=== PATIENT | male | born 1990 | race Asian ===

== ENCOUNTER 2017-04-24 08:37 | Inpatient (IN) | payer MEDICAID ==
[~2017-04-24] VITALS: Ht 172.7 cm; Wt 58.1 kg
[~2017-04-24 08:37] MED LIST: BENZ1TAB10 PO; RISP3 PO
[2017-04-24] MEDS ORDERED: DOXE10 PO (08:46)
[2017-04-24 09:35] LABS: BASOPHILS # (AUTO) 0.07 K/uL (0.00-0.20); BASOPHILS % (AUTO) 0.9 % (0.0-2.0); EOSINOPHILS # (AUTO) 0.09 K/uL (0.00-0.70); EOSINOPHILS % (AUTO) 1.12 % (1.0-6.0); HEMATOCRIT 42.3 % (41-53); HEMOGLOBIN 14.1 g/dL (13.5-17.5); LYMPHOCYTES # (AUTO) 1.9 K/uL (1.0-4.8); LYMPHOCYTES % (AUTO) 22.3 % (22.0-44.0); MEAN CORPUSCULAR HEMOGLOBIN 29.1 pg (26.0-34.0); MEAN CORPUSCULAR HGB CONC 33.3 G/dL (31.0-37.0); MEAN CORPUSCULAR VOLUME 88 fL (80-100); MONOCYTES # (AUTO) 0.7 K/uL (0.1-1.0); MONOCYTES % (AUTO) 8.9 % (2.0-9.0); NEUTROPHILS # (AUTO) 5.6 K/uL (1.8-7.7); NEUTROPHILS % (AUTO) 66.9 % (40.0-70.0); PLATELET COUNT (AUTO) 245 K/uL (150-450); RED BLOOD CELL COUNT(AUTO) 4.84 MIL/uL (4.50-5.90); RED CELL DISTRIBUTION WIDTH 13.2 % (11.5-14.5)
[2017-04-24 09:48] LABS: ANION GAP 7 mmol/L (8-16); CARBON DIOXIDE 29 mmol/L (22-29); CHLORIDE 101 mmol/L (98-107); CREATININE 1.07 mg/dL (0.60-1.30); GLOMERULAR FILTR. RATE CALC > 60 mL/min (>60); GLUCOSE,RANDOM 91 mg/dL (70-110); POTASSIUM 3.7 mmol/L (3.5-5.1); SODIUM SERUM 137 mmol/L (136-145); UREA NITROGEN, BLOOD 7 mg/dL (7-18)
[2017-04-24 09:53] LABS: ALANINE AMINOTRANSFERASE 17 U/L (12-78); ALBUMIN 4.2 g/dL (3.4-5.0); ALKALINE PHOSPHATASE 105 U/L (46-116); ASPARTATE AMINOTRANSFERASE 19 U/L (15-37); BILIRUBIN,TOTAL 0.5 mg/dL (0.1-1.0); TOTAL PROTEIN, SERUM 7.8 g/dL (6.4-8.2)
[2017-04-24] MEDS ORDERED: BENZ0.5T6 PO (11:55)
[2017-04-24] MEDS ORDERED: RISP1 PO (11:55)
[2017-04-24] MEDS ORDERED: LORazepam 2 MG TABLET PO ONE (12:00)
[2017-04-24] MEDS ORDERED: ZOLPIDEM TARTRATE 10 MG TABLET PO PRN (12:45)
[2017-04-24] MEDS ORDERED: INFLUENZA VIRUS VACCINE QVS 2017-18 (3YR+)/PF 60 MCG/0.5 ML SYRINGE IM ONE (14:45)
[2017-04-24 16:00] VITALS: BP 127/68
[2017-04-24] MEDS: LORazepam 2 MG TABLET PO PRN (16:03)
[2017-04-24] MEDS: HALOPERIDOL 5 MG TABLET PO PRN (17:21)
[2017-04-24] MEDS ORDERED: HALOPERIDOL LACTATE 5 MG/ML VIAL ONE (18:51)
[2017-04-24] MEDS ORDERED: DiphenhydrAMINE HCL 50 MG/ML VIAL ONE (18:51)
[2017-04-24] MEDS ORDERED: LORazepam 2 MG/ML VIAL ONE (18:51)
[2017-04-24] MEDS ORDERED: LORazepam 2 MG/ML VIAL IM ONE (19:00)
[2017-04-24] MEDS ORDERED: HALOPERIDOL LACTATE 5 MG/ML VIAL IM ONE (19:00)
[2017-04-24] MEDS ORDERED: DiphenhydrAMINE HCL 50 MG/ML VIAL IM ONE (19:00)
[2017-04-25 06:33] VITALS: BP 100/69
[2017-04-25 08:10] VITALS: BP 139/69
[2017-04-25 08:15] LABS: CHOL/HDL RATIO 2.4 (4.2-7.3); FREE T4 (FREE THYROXINE) 1.2 ng/dL (0.76-1.46)
[2017-04-25] MEDS: BENZTROPINE MESYLATE 1 MG TABLET PO SCH ×2 (09:01→16:08)
[2017-04-25] MEDS: RisperiDONE 3 MG TABLET PO SCH ×2 (09:01→16:08)
[2017-04-25] MEDS: LORazepam 2 MG TABLET PO PRN ×3 (09:01→20:23)
[2017-04-25] MEDS: HALOPERIDOL 5 MG TABLET PO PRN ×2 (09:01→14:48)
[2017-04-25 16:00] VITALS: BP 115/70
[2017-04-26 01:04] VITALS: BP 106/82
[2017-04-26 08:15] VITALS: BP 110/62
[2017-04-26] MEDS: BENZTROPINE MESYLATE 1 MG TABLET PO SCH ×2 (09:13→16:39)
[2017-04-26] MEDS: RisperiDONE 3 MG TABLET PO SCH ×2 (09:13→16:39)
[2017-04-26] MEDS: HALOPERIDOL 5 MG TABLET PO PRN (09:17)
[2017-04-26] MEDS: LORazepam 2 MG TABLET PO PRN ×2 (09:17→14:20)
[2017-04-26 16:00] VITALS: BP 112/78
[2017-04-26] MEDS ORDERED: IBUPROFEN 600 MG TABLET PO PRN (22:15)
[2017-04-27 02:10] VITALS: BP 116/69
[2017-04-27] MEDS: HALOPERIDOL 5 MG TABLET PO PRN ×2 (02:17→16:18)
[2017-04-27] MEDS: LORazepam 2 MG TABLET PO PRN ×3 (02:17→16:19)
[2017-04-27] MEDS: BENZTROPINE MESYLATE 1 MG TABLET PO SCH ×2 (08:15→16:19)
[2017-04-27] MEDS: RisperiDONE 3 MG TABLET PO SCH ×2 (08:15→16:18)
[2017-04-27 08:36] VITALS: BP 96/67
[2017-04-27 16:00] VITALS: BP 123/73
[2017-04-28 02:18] VITALS: BP 119/80
[2017-04-28 08:29] VITALS: BP 117/53
[2017-04-28] MEDS: RisperiDONE 3 MG TABLET PO SCH (08:33)
[2017-04-28] MEDS: LORazepam 2 MG TABLET PO PRN (08:33)
[2017-04-28] MEDS: BENZTROPINE MESYLATE 1 MG TABLET PO SCH (08:33)
[2017-04-28] MEDS ORDERED: ACETAMINOPHEN 325 MG TABLET PO PRN (09:45)
[2017-04-28] MEDS ORDERED: BENZ1TAB10 PO (15:47)
[2017-04-28] MEDS ORDERED: RISP3 PO (15:47)
== END 2017-04-28 16:15 | disposition home or self-care (01) | DRG 750 ==
LOC: EEVIPCON 08:38 → EMS 08:38 → B3A 13:15
PROVIDERS: ADMIT Psychiatry & Neurology Psychiatry; ATTEND Psychiatry & Neurology Psychiatry
DX: F20.0 Paranoid schizophrenia (principal); R45.850 Homicidal ideations; F41.9 Anxiety disorder, unspecified; F12.90 Cannabis use, unspecified, uncomplicated; Z28.21 Immunization not carried out because of patient refusal
CPT/HCPCS: 80074; 84436; 84439; 90471; 99285; G0480; J1200; J1630; J2060

== ENCOUNTER 2019-03-03 16:34 | Inpatient (IN) | payer MEDICAID ==
[~2019-03-03] VITALS: Ht 172.7 cm; Wt 60.0 kg
[2019-03-03] MEDS ORDERED: RISP1 PO (16:46)
[2019-03-03 18:00] VITALS: BP 123/85
[2019-03-03 18:02] VITALS: BP 123/85
[2019-03-03] MEDS: HALOPERIDOL 5 MG TABLET PO PRN (18:21)
[2019-03-03] MEDS: LORazepam 2 MG TABLET PO PRN (18:21)
[2019-03-03] MEDS: ZOLPIDEM TARTRATE 10 MG TABLET PO PRN (20:59)
[2019-03-04 06:20] VITALS: BP 114/78
[2019-03-04] MEDS: LORazepam 2 MG TABLET PO PRN ×4 (07:02→16:25)
[2019-03-04 08:26] LABS: BASOPHILS % (AUTO) 0.8 % (0.0-2.0); EOSINOPHILS % (AUTO) 1.9 % (1.0-6.0); HEMATOCRIT 46.2 % (41-53); HEMOGLOBIN 15.1 g/dL (13.5-17.5); LYMPHOCYTES # (AUTO) 1.6 K/uL (1.0-4.8); LYMPHOCYTES % (AUTO) 19.4 % (22.0-44.0); MEAN CORPUSCULAR HEMOGLOBIN 28.8 pg (26.0-34.0); MEAN CORPUSCULAR HGB CONC 32.7 G/dL (31.0-37.0); MEAN CORPUSCULAR VOLUME 88 fL (80-100); MONOCYTES # (AUTO) 0.4 K/uL (0.1-1.0); MONOCYTES % (AUTO) 4.2 % (2.0-9.0); NEUTROPHILS # (AUTO) 6.2 K/uL (1.8-7.7); NEUTROPHILS % (AUTO) 73.7 % (40.0-70.0); PLATELET COUNT (AUTO) 294 K/uL (150-450); RED BLOOD CELL COUNT(AUTO) 5.25 MIL/uL (4.50-5.90); RED CELL DISTRIBUTION WIDTH 13.6 % (11.5-14.5)
[2019-03-04 08:37] VITALS: BP 114/67
[2019-03-04 08:38] LABS: HEMOGLOBIN A1C 5.2 % (4.5-6.2)
[2019-03-04 09:05] LABS: ALANINE AMINOTRANSFERASE 14 U/L (12-78); ALBUMIN 4.6 g/dL (3.4-5.0); ALKALINE PHOSPHATASE 70 U/L (46-116); ANION GAP 8 mmol/L (8-16); ASPARTATE AMINOTRANSFERASE 15 U/L (15-37); BILIRUBIN,TOTAL 0.9 mg/dL (0.1-1.0); CALCIUM, TOTAL 9.4 mg/dL (8.8-10.5); CARBON DIOXIDE 25 mmol/L (22-29); CHLORIDE 102 mmol/L (98-107); CHOL/HDL RATIO 2.9 (4.2-7.3); CHOLESTEROL 153 mg/dL (131-200); CREATININE 1.11 mg/dL (0.60-1.30); GLOMERULAR FILTR. RATE CALC > 60 mL/min (>60); GLUCOSE,RANDOM 119 mg/dL (70-110); HDL CHOLESTEROL 52 mg/dL (40-60); LDL CHOL (CALC.) 89 mg/dL (0-130); POTASSIUM 4.1 mmol/L (3.5-5.1); SODIUM SERUM 135 mmol/L (136-145); THYROID STIMULATING HORMONE 1.03 uIU/mL (0.36-3.74); TRIGLYCERIDES 62 mg/dL (15-150); UREA NITROGEN, BLOOD 9 mg/dL (7-18)
[2019-03-04] MEDS: HALOPERIDOL 5 MG TABLET PO PRN ×2 (10:27→16:25)
[2019-03-04] MEDS ORDERED: BISACODYL 5 MG EC TABLET PO PRN (14:45)
[2019-03-04 16:18] VITALS: BP 146/63
[2019-03-04] MEDS: RisperiDONE 1 MG TABLET PO SCH (16:25)
[2019-03-04] MEDS: BENZTROPINE MESYLATE 1 MG TABLET PO SCH (16:25)
[2019-03-05 06:11] VITALS: BP 122/78
[2019-03-05] MEDS: HALOPERIDOL 5 MG TABLET PO PRN ×3 (07:00→17:50)
[2019-03-05] MEDS: LORazepam 2 MG TABLET PO PRN ×4 (07:00→20:53)
[2019-03-05] MEDS: RisperiDONE 1 MG TABLET PO SCH ×2 (08:31→16:38)
[2019-03-05] MEDS: BENZTROPINE MESYLATE 1 MG TABLET PO SCH ×2 (08:31→16:38)
[2019-03-05 08:52] VITALS: BP 128/87
[2019-03-05 16:10] VITALS: BP 113/67
[2019-03-05] MEDS: ZOLPIDEM TARTRATE 10 MG TABLET PO PRN (20:09)
[2019-03-06 06:31] VITALS: BP 128/93
[2019-03-06] MEDS: HALOPERIDOL 5 MG TABLET PO PRN ×3 (06:32→20:32)
[2019-03-06] MEDS: LORazepam 2 MG TABLET PO PRN ×4 (06:32→20:32)
[2019-03-06 08:06] VITALS: BP 139/77
[2019-03-06] MEDS: RisperiDONE 1 MG TABLET PO SCH ×2 (08:27→16:27)
[2019-03-06] MEDS: BENZTROPINE MESYLATE 1 MG TABLET PO SCH ×2 (08:27→16:27)
[2019-03-06 16:47] VITALS: BP 108/66
[2019-03-06] MEDS: ZOLPIDEM TARTRATE 10 MG TABLET PO PRN (20:32)
[2019-03-07 04:00] VITALS: BP 112/70
[2019-03-07] MEDS: HALOPERIDOL 5 MG TABLET PO PRN ×4 (06:34→23:50)
[2019-03-07] MEDS: LORazepam 2 MG TABLET PO PRN ×3 (06:34→20:13)
[2019-03-07] MEDS: RisperiDONE 1 MG TABLET PO SCH ×2 (08:21→16:12)
[2019-03-07] MEDS: BENZTROPINE MESYLATE 1 MG TABLET PO SCH ×2 (08:21→16:12)
[2019-03-07 15:18] VITALS: BP 106/67
[2019-03-07 16:00] VITALS: BP 120/66
[2019-03-07] MEDS: ZOLPIDEM TARTRATE 10 MG TABLET PO PRN (20:13)
[2019-03-08 02:53] VITALS: BP 118/69
[2019-03-08] MEDS: HALOPERIDOL 5 MG TABLET PO PRN (06:20)
[2019-03-08] MEDS: LORazepam 2 MG TABLET PO PRN (06:20)
[2019-03-08 08:00] VITALS: BP 117/72
[2019-03-08] MEDS: RisperiDONE 1 MG TABLET PO SCH (08:03)
[2019-03-08] MEDS: BENZTROPINE MESYLATE 1 MG TABLET PO SCH (08:03)
== END 2019-03-08 11:27 | disposition home or self-care (01) | DRG 750 ==
LOC: B3A 17:41
PROVIDERS: ADMIT Psychiatry & Neurology Psychiatry; ATTEND Psychiatry & Neurology Psychiatry
DX: F20.0 Paranoid schizophrenia (principal); R45.850 Homicidal ideations; F12.90 Cannabis use, unspecified, uncomplicated; K59.00 Constipation, unspecified; F15.90 Other stimulant use, unspecified, uncomplicated
CPT/HCPCS: 83036; 84439; 84443

== ENCOUNTER 2020-03-14 07:41 | Inpatient (IN) | payer MEDICAID ==
[~2020-03-14] VITALS: Ht 172.7 cm; Wt 60.9 kg
[~2020-03-14 07:41] MED LIST changes: +RISP1TAB27 PO; -RISP3 PO
[2020-03-14 08:24] LABS: BASOPHILS % (AUTO) 0.3 % (0.0-2.0); EOSINOPHILS % (AUTO) 0.1 % (1.0-6.0); HEMATOCRIT 41.1 % (41-53); HEMOGLOBIN 13.5 g/dL (13.5-17.5); LYMPHOCYTES # (AUTO) 1.5 K/uL (1.0-4.8); LYMPHOCYTES % (AUTO) 10.2 % (22.0-44.0); MEAN CORPUSCULAR HEMOGLOBIN 28.4 pg (26.0-34.0); MEAN CORPUSCULAR HGB CONC 32.8 G/dL (31.0-37.0); MEAN CORPUSCULAR VOLUME 87 fL (80-100); MONOCYTES # (AUTO) 1.2 K/uL (0.1-1.0); MONOCYTES % (AUTO) 8.2 % (2.0-9.0); NEUTROPHILS # (AUTO) 11.9 K/uL (1.8-7.7); NEUTROPHILS % (AUTO) 81.2 % (40.0-70.0); PLATELET COUNT (AUTO) 288 K/uL (150-450); RED BLOOD CELL COUNT(AUTO) 4.74 MIL/uL (4.50-5.90); RED CELL DISTRIBUTION WIDTH 13.7 % (11.5-14.5)
[2020-03-14 08:35] LABS: ANION GAP 10 mmol/L (8-16); CARBON DIOXIDE 25 mmol/L (22-29); CHLORIDE 104 mmol/L (98-107); CREATININE 1.19 mg/dL (0.60-1.30); GLOMERULAR FILTR. RATE CALC > 60 mL/min (>60); GLUCOSE,RANDOM 115 mg/dL (70-110); POTASSIUM 3.5 mmol/L (3.5-5.1); SODIUM SERUM 139 mmol/L (136-145); UREA NITROGEN, BLOOD 10 mg/dL (7-18)
[2020-03-14 08:42] LABS: ALANINE AMINOTRANSFERASE 33 U/L (12-78); ALBUMIN 4.5 g/dL (3.4-5.0); ALKALINE PHOSPHATASE 70 U/L (46-116); ASPARTATE AMINOTRANSFERASE 26 U/L (15-37); BILIRUBIN,TOTAL 0.3 mg/dL (0.1-1.0); TOTAL PROTEIN, SERUM 7.4 g/dL (6.4-8.2)
[2020-03-14] MEDS ORDERED: HALOPERIDOL 5 MG TABLET PO ONE (08:45)
[2020-03-14 11:04] LABS: AMPHET/METH SCREEN,URINE POSITIVE (NEGATIVE); BARBITURATE SCREEN, URINE NEGATIVE (NEGATIVE); BENZODIAZEPINES SCREEN,URINE NEGATIVE (NEGATIVE); CANNABINOID SCREEN,URINE POSITIVE (NEGATIVE); COCAINE SCREEN,URINE NEGATIVE (NEGATIVE); METHADONE SCREEN, URINE NEGATIVE (NEGATIVE); OPIATE SCREEN,URINE NEGATIVE (NEGATIVE)
[2020-03-14 11:07] LABS: PHENCYCLIDINE SCREEN,URINE NEGATIVE (NEGATIVE)
[2020-03-14] MEDS ORDERED: ZOLPIDEM TARTRATE 10 MG TABLET PO PRN (13:15)
[2020-03-14 13:52] LABS: COVID AG,FIA SOURCE NASOPHARYNGEAL
[2020-03-14] MEDS: LORazepam 2 MG TABLET PO PRN (17:21)
[2020-03-14] MEDS: DIVALPROEX SODIUM 500 MG ER TABLET PO SCH (17:21)
[2020-03-14] MEDS: RisperiDONE 2 MG TABLET PO SCH (17:21)
[2020-03-14 21:23] VITALS: BP 122/81
[2020-03-15 03:10] VITALS: BP 120/76
[2020-03-15] MEDS: LORazepam 2 MG TABLET PO PRN (05:24)
[2020-03-15] MEDS: DIVALPROEX SODIUM 500 MG ER TABLET PO SCH ×2 (06:15→16:22)
[2020-03-15 08:08] VITALS: BP 116/72
[2020-03-15] MEDS: HALOPERIDOL 5 MG TABLET PO PRN (08:18)
[2020-03-15] MEDS: RisperiDONE 2 MG TABLET PO SCH ×2 (08:18→16:22)
[2020-03-15] MEDS ORDERED: CloNIDine HCL 0.1 MG TABLET PO PRN (09:00)
[2020-03-15] MEDS ORDERED: ALBUTEROL SULFATE HFA 90 MCG/PUFF 8 GM INHALER IH PRN (09:00)
[2020-03-15] MEDS ORDERED: MAG HYDROX/AL HYDROX/SIMETH ES 30 ML SUSPENSION UDCUP PO PRN (09:00)
[2020-03-15] MEDS ORDERED: BENZOCAINE/MENTHOL LOZENGE PO PRN (09:00)
[2020-03-15] MEDS ORDERED: LOPERAMIDE HCL 2 MG CAPSULE PO PRN (09:00)
[2020-03-15] MEDS ORDERED: BACITRACIN 28 GM OINTMENT TP PRN (09:00)
[2020-03-15] MEDS ORDERED: IBUPROFEN 600 MG TABLET PO PRN (09:00)
[2020-03-15] MEDS ORDERED: MAGNESIUM HYDROXIDE SUSPENSION 30 ML UDCUP PO PRN (09:00)
[2020-03-15] MEDS ORDERED: DOCUSATE SODIUM 100 MG CAPSULE PO PRN (09:00)
[2020-03-15] MEDS ORDERED: ONDANSETRON HCL 4 MG TABLET PO PRN (09:00)
[2020-03-15] MEDS ORDERED: ACETAMINOPHEN 325 MG TABLET PO PRN (09:00)
[2020-03-15] MEDS ORDERED: PETROLATUM,WHITE 28 GM JELLY TP PRN (09:00)
[2020-03-15] MEDS ORDERED: OMEPRAZOLE 20 MG CAPSULE PO PRN (09:00)
[2020-03-15 16:02] VITALS: BP 113/64
[2020-03-16 05:32] VITALS: BP 128/76
[2020-03-16] MEDS: DIVALPROEX SODIUM 500 MG ER TABLET PO SCH ×2 (06:05→16:19)
[2020-03-16] MEDS: LORazepam 2 MG TABLET PO PRN ×4 (07:06→21:09)
[2020-03-16 08:18] VITALS: BP 100/70
[2020-03-16] MEDS: RisperiDONE 2 MG TABLET PO SCH ×2 (08:26→16:19)
[2020-03-16 16:03] VITALS: BP 117/87
[2020-03-16] MEDS: HALOPERIDOL 5 MG TABLET PO PRN (18:43)
[2020-03-17] MEDS: DIVALPROEX SODIUM 500 MG ER TABLET PO SCH ×2 (06:39→16:02)
[2020-03-17 06:51] VITALS: BP 122/76
[2020-03-17 08:17] VITALS: BP 128/90
[2020-03-17] MEDS: RisperiDONE 2 MG TABLET PO SCH ×2 (08:22→16:02)
[2020-03-17] MEDS: LORazepam 2 MG TABLET PO PRN ×2 (11:38→16:02)
[2020-03-17 16:05] VITALS: BP 131/90
[2020-03-17] MEDS: HALOPERIDOL 5 MG TABLET PO PRN (18:00)
[2020-03-18 03:30] VITALS: BP 122/67
[2020-03-18] MEDS: LORazepam 2 MG TABLET PO PRN ×3 (05:02→12:55)
[2020-03-18] MEDS: HALOPERIDOL 5 MG TABLET PO PRN (05:02)
[2020-03-18] MEDS: DIVALPROEX SODIUM 500 MG ER TABLET PO SCH (06:10)
[2020-03-18 08:14] VITALS: BP 127/78
[2020-03-18] MEDS: RisperiDONE 2 MG TABLET PO SCH (08:27)
[2020-03-18] MEDS ORDERED: DIVA-80 PO (13:36)
== END 2020-03-18 15:15 | disposition home or self-care (01) | DRG 750 ==
LOC: EMS 07:42 → B3A 15:07
PROVIDERS: ADMIT Psychiatry & Neurology Psychiatry; ATTEND Psychiatry & Neurology Psychiatry
DX: F20.0 Paranoid schizophrenia (principal); F12.10 Cannabis abuse, uncomplicated; F15.10 Other stimulant abuse, uncomplicated; F29 Unspecified psychosis not due to a substance or known physiological condition; F41.9 Anxiety disorder, unspecified; G47.00 Insomnia, unspecified; K59.00 Constipation, unspecified; M19.90 Unspecified osteoarthritis, unspecified site; Z79.899 Other long term (current) drug therapy; Z03.818 Encounter for observation for suspected exposure to other biological agents ruled out
CPT/HCPCS: 87426; G0480

== ENCOUNTER 2020-08-14 16:06 | Inpatient (IN) | payer MEDICAID ==
[~2020-08-14] VITALS: Ht 175.3 cm; Wt 76.3 kg
[~2020-08-14 16:06] MED LIST changes: -BENZ1TAB10 PO; +DIVA-80 PO; -RISP1TAB27 PO; +RISP1TAB48 PO
[2020-08-14 17:42] LABS: COVID AG,FIA SOURCE NASOPHARYNGEAL
[2020-08-14 17:45] LABS: BASOPHILS % (AUTO) 0.9 % (0.0-2.0); EOSINOPHILS % (AUTO) 0.9 % (1.0-6.0); HEMATOCRIT 37.9 % (41-53); HEMOGLOBIN 12.7 g/dL (13.5-17.5); LYMPHOCYTES # (AUTO) 2.4 K/uL (1.0-4.8); LYMPHOCYTES % (AUTO) 28.6 % (22.0-44.0); MEAN CORPUSCULAR HEMOGLOBIN 28.9 pg (26.0-34.0); MEAN CORPUSCULAR HGB CONC 33.5 G/dL (31.0-37.0); MEAN CORPUSCULAR VOLUME 86 fL (80-100); MONOCYTES # (AUTO) 0.8 K/uL (0.1-1.0); MONOCYTES % (AUTO) 9.1 % (2.0-9.0); NEUTROPHILS % (AUTO) 60.5 % (40.0-70.0); PLATELET COUNT (AUTO) 291 K/uL (150-450)
[2020-08-14 17:56] LABS: ANION GAP 10 mmol/L (8-16); CARBON DIOXIDE 28 mmol/L (22-29); CHLORIDE 100 mmol/L (98-107); CREATININE 1.04 mg/dL (0.60-1.30); GLOMERULAR FILTR. RATE CALC > 60 mL/min (>60); GLUCOSE,RANDOM 115 mg/dL (70-110); POTASSIUM 3.2 mmol/L (3.5-5.1); SODIUM SERUM 138 mmol/L (136-145); UREA NITROGEN, BLOOD 13 mg/dL (7-18)
[2020-08-14] MEDS ORDERED: LORazepam 2 MG TABLET PO ONE (18:00)
[2020-08-14] MEDS ORDERED: DiphenhydrAMINE HCL 50 MG CAPSULE PO ONE (18:00)
[2020-08-14] MEDS ORDERED: HALOPERIDOL 5 MG TABLET PO ONE (18:00)
[2020-08-14 18:01] LABS: ALANINE AMINOTRANSFERASE 50 U/L (12-78); ALBUMIN 3.8 g/dL (3.4-5.0); ALKALINE PHOSPHATASE 81 U/L (46-116); ASPARTATE AMINOTRANSFERASE 77 U/L (15-37); BILIRUBIN,TOTAL 0.7 mg/dL (0.1-1.0); VALPROIC ACID 64 mcg/mL (50-100)
[2020-08-14] MEDS ORDERED: POTASSIUM CHLORIDE 20 MEQ ER TABLET PO ONE (18:45)
[2020-08-14] MEDS ORDERED: DiphenhydrAMINE HCL 50 MG/ML VIAL IM ONE (19:15)
[2020-08-14] MEDS ORDERED: HALOPERIDOL LACTATE 5 MG/ML VIAL IM ONE (19:15)
[2020-08-14] MEDS ORDERED: LORazepam 2 MG/ML VIAL IM ONE (19:15)
[2020-08-14] MEDS ORDERED: INFLUENZA VIRUS VACCINE QVS 2020-21 (6MO+)/PF 60 MCG/0.5 ML SYRINGE IM ONE (23:45)
[2020-08-15 06:57] VITALS: BP 132/79
[2020-08-15 08:11] VITALS: BP 128/74
[2020-08-15] MEDS ORDERED: GuaiFENesin/D-METHORPHAN [SUGAR-FREE] 200-20MG/10 ML SYRUP UDCUP PO PRN (08:30)
[2020-08-15] MEDS ORDERED: DOCUSATE SODIUM 100 MG CAPSULE PO PRN (08:30)
[2020-08-15] MEDS ORDERED: CloNIDine HCL 0.1 MG TABLET PO PRN (08:30)
[2020-08-15] MEDS ORDERED: PETROLATUM,WHITE 28 GM JELLY TP PRN (08:30)
[2020-08-15] MEDS ORDERED: LOPERAMIDE HCL 2 MG CAPSULE PO PRN (08:30)
[2020-08-15] MEDS ORDERED: ONDANSETRON HCL 4 MG TABLET PO PRN (08:30)
[2020-08-15] MEDS ORDERED: ALBUTEROL SULFATE HFA 90 MCG/PUFF 8 GM INHALER IH PRN (08:30)
[2020-08-15] MEDS ORDERED: MAG HYDROX/AL HYDROX/SIMETH ES 30 ML SUSPENSION UDCUP PO PRN (08:30)
[2020-08-15] MEDS ORDERED: MAGNESIUM HYDROXIDE SUSPENSION 30 ML UDCUP PO PRN (08:30)
[2020-08-15] MEDS: LORazepam 2 MG TABLET PO PRN ×2 (09:14→20:28)
[2020-08-15] MEDS: DIVALPROEX SODIUM 500 MG ER TABLET PO SCH ×2 (12:37→20:28)
[2020-08-15] MEDS: RisperiDONE 2 MG TABLET PO SCH ×2 (12:38→20:28)
[2020-08-15 16:31] VITALS: BP 110/64
[2020-08-16] VITALS: BP 108/61
[2020-08-16] MEDS: LORazepam 2 MG TABLET PO PRN ×2 (05:43→17:05)
[2020-08-16 08:22] VITALS: BP 103/60
[2020-08-16] MEDS: DIVALPROEX SODIUM 500 MG ER TABLET PO SCH ×2 (09:03→21:45)
[2020-08-16] MEDS: RisperiDONE 2 MG TABLET PO SCH ×2 (09:03→21:45)
[2020-08-16] MEDS: HALOPERIDOL 5 MG TABLET PO PRN ×2 (09:04→17:05)
[2020-08-16] MEDS: NICOTINE 14 MG/24 HOUR PATCH TD PRN (10:17)
[2020-08-16 17:50] VITALS: BP 118/71
[2020-08-17 04:40] VITALS: BP 116/69
[2020-08-17 08:13] VITALS: BP 121/80
[2020-08-17] MEDS: HALOPERIDOL 5 MG TABLET PO PRN ×3 (08:20→23:45)
[2020-08-17] MEDS: RisperiDONE 2 MG TABLET PO SCH ×2 (08:20→20:57)
[2020-08-17] MEDS: LORazepam 2 MG TABLET PO PRN ×3 (08:20→23:45)
[2020-08-17] MEDS: DIVALPROEX SODIUM 500 MG ER TABLET PO SCH ×2 (08:20→20:57)
[2020-08-17] MEDS ORDERED: LORazepam 2 MG/ML VIAL ONE (14:28)
[2020-08-17] MEDS ORDERED: DiphenhydrAMINE HCL 50 MG/ML VIAL ONE (14:28)
[2020-08-17] MEDS ORDERED: HALOPERIDOL LACTATE 5 MG/ML VIAL ONE (14:28)
[2020-08-17] MEDS ORDERED: LORazepam 2 MG/ML VIAL IM ONE (14:30)
[2020-08-17] MEDS ORDERED: DiphenhydrAMINE HCL 50 MG/ML VIAL IM ONE (14:30)
[2020-08-17] MEDS ORDERED: HALOPERIDOL LACTATE 5 MG/ML VIAL IM ONE (14:30)
[2020-08-17] MEDS ORDERED: RISP2TAB45 PO (14:35)
[2020-08-17 16:25] VITALS: BP 118/62
[2020-08-18 04:43] VITALS: BP 132/80
[2020-08-18] MEDS: LORazepam 2 MG TABLET PO PRN ×3 (04:50→16:28)
[2020-08-18] MEDS: HALOPERIDOL 5 MG TABLET PO PRN ×3 (04:50→16:28)
[2020-08-18] MEDS: RisperiDONE 2 MG TABLET PO SCH ×2 (08:57→21:03)
[2020-08-18] MEDS: DIVALPROEX SODIUM 500 MG ER TABLET PO SCH ×2 (08:57→21:03)
[2020-08-18 16:49] VITALS: BP 111/54
[2020-08-18] MEDS ORDERED: LORazepam 2 MG/ML VIAL ONE (20:32)
[2020-08-18] MEDS ORDERED: HALOPERIDOL LACTATE 5 MG/ML VIAL ONE (20:32)
[2020-08-18] MEDS ORDERED: DiphenhydrAMINE HCL 50 MG/ML VIAL ONE (20:32)
[2020-08-18] MEDS ORDERED: HALOPERIDOL LACTATE 5 MG/ML VIAL IM ONE (20:45)
[2020-08-18] MEDS ORDERED: DiphenhydrAMINE HCL 50 MG/ML VIAL IM ONE (20:45)
[2020-08-18] MEDS ORDERED: LORazepam 2 MG/ML VIAL IM ONE (20:45)
[2020-08-19 08:11] VITALS: BP 124/84
[2020-08-19] MEDS: HALOPERIDOL 5 MG TABLET PO PRN ×2 (08:39→16:48)
[2020-08-19] MEDS: RisperiDONE 2 MG TABLET PO SCH ×2 (08:39→21:00)
[2020-08-19] MEDS: DIVALPROEX SODIUM 500 MG ER TABLET PO SCH ×2 (08:39→21:00)
[2020-08-19] MEDS: LORazepam 2 MG TABLET PO PRN ×2 (08:39→16:48)
[2020-08-19 17:11] VITALS: BP 138/82
[2020-08-19] MEDS: ZOLPIDEM TARTRATE 10 MG TABLET PO PRN (23:59)
[2020-08-20 00:19] VITALS: BP 126/78
[2020-08-20] MEDS: LORazepam 2 MG TABLET PO PRN ×3 (01:21→15:58)
[2020-08-20 08:29] VITALS: BP 115/67
[2020-08-20] MEDS: DIVALPROEX SODIUM 500 MG ER TABLET PO SCH ×2 (09:25→20:25)
[2020-08-20] MEDS: RisperiDONE 2 MG TABLET PO SCH ×2 (09:25→20:25)
[2020-08-20] MEDS: IBUPROFEN 400 MG TABLET PO PRN (12:14)
[2020-08-20] MEDS: HALOPERIDOL 5 MG TABLET PO PRN (15:58)
[2020-08-20 16:42] VITALS: BP 128/82
[2020-08-20] MEDS: ZOLPIDEM TARTRATE 10 MG TABLET PO PRN (20:50)
[2020-08-21 03:12] VITALS: BP 118/74
[2020-08-21] MEDS: LORazepam 2 MG TABLET PO PRN ×3 (06:22→17:00)
[2020-08-21] MEDS: HALOPERIDOL 5 MG TABLET PO PRN ×3 (06:35→18:02)
[2020-08-21 08:37] VITALS: BP 146/78
[2020-08-21] MEDS: DIVALPROEX SODIUM 500 MG ER TABLET PO SCH ×2 (08:44→20:44)
[2020-08-21] MEDS: RisperiDONE 2 MG TABLET PO SCH ×2 (08:44→20:44)
[2020-08-21 16:32] VITALS: BP 106/64
[2020-08-21] MEDS: ZOLPIDEM TARTRATE 10 MG TABLET PO PRN (22:53)
[2020-08-22] MEDS: LORazepam 2 MG TABLET PO PRN ×3 (04:08→14:03)
[2020-08-22 04:54] VITALS: BP 127/78
[2020-08-22] MEDS: MULTIVITAMINS WITH MINERALS, THERAPEUTIC TABLET PO SCH (08:20)
[2020-08-22] MEDS: DIVALPROEX SODIUM 500 MG ER TABLET PO SCH ×2 (08:20→20:58)
[2020-08-22] MEDS: RisperiDONE 2 MG TABLET PO SCH (08:20)
[2020-08-22 08:36] VITALS: BP 123/80
[2020-08-22] MEDS: HALOPERIDOL 5 MG TABLET PO PRN (15:55)
[2020-08-22 16:29] VITALS: BP 108/60
[2020-08-22] MEDS: RisperiDONE 3 MG TABLET PO SCH (20:59)
[2020-08-23 00:19] VITALS: BP 131/90
[2020-08-23] MEDS: ZOLPIDEM TARTRATE 10 MG TABLET PO PRN (03:07)
[2020-08-23] MEDS ORDERED: DiphenhydrAMINE HCL 50 MG/ML VIAL ONE (05:10)
[2020-08-23] MEDS ORDERED: LORazepam 2 MG/ML VIAL ONE (05:10)
[2020-08-23] MEDS ORDERED: HALOPERIDOL LACTATE 5 MG/ML VIAL ONE (05:11)
[2020-08-23] MEDS ORDERED: DiphenhydrAMINE HCL 50 MG/ML VIAL IM ONE ×2 (05:30→08:30)
[2020-08-23] MEDS ORDERED: HALOPERIDOL LACTATE 5 MG/ML VIAL IM ONE (05:30)
[2020-08-23] MEDS ORDERED: LORazepam 2 MG/ML VIAL IM ONE (05:30)
[2020-08-23] MEDS ORDERED: ChlorproMAZINE HCL 50 MG/2 ML AMP ONE (08:06)
[2020-08-23] MEDS ORDERED: ChlorproMAZINE HCL 50 MG/2 ML AMP IM ONE (08:30)
[2020-08-23 08:36] VITALS: BP 134/93
[2020-08-23] MEDS: RisperiDONE 3 MG TABLET PO SCH (10:05)
[2020-08-23] MEDS: DIVALPROEX SODIUM 500 MG ER TABLET PO SCH (10:05)
[2020-08-23] MEDS: MULTIVITAMINS WITH MINERALS, THERAPEUTIC TABLET PO SCH (10:05)
[2020-08-23] MEDS: LORazepam 2 MG TABLET PO PRN (10:05)
[2020-08-23 13:49] VITALS: BP 125/88
[2020-08-23 14:49] VITALS: BP 118/73
[2020-08-23] MEDS: IBUPROFEN 400 MG TABLET PO PRN (14:52)
[2020-08-23 18:01] VITALS: BP 130/85
[2020-08-23] MEDS: RisperiDONE CONC 3 MG/3 ML SOLUTION ORAL.SYG PO SCH (21:17)
[2020-08-23] MEDS: VALPROIC ACID 250 MG/5 ML SYRUP UDCUP PO SCH (21:21)
[2020-08-24 00:42] VITALS: BP 123/74
[2020-08-24 08:27] LABS: COVID AG,FIA SOURCE NASAL SWAB
[2020-08-24 08:43] VITALS: BP 142/76
[2020-08-24] MEDS: VALPROIC ACID 250 MG/5 ML SYRUP UDCUP PO SCH ×2 (08:52→20:17)
[2020-08-24] MEDS: RisperiDONE CONC 3 MG/3 ML SOLUTION ORAL.SYG PO SCH ×2 (08:52→20:17)
[2020-08-24] MEDS: MULTIVITAMINS WITH MINERALS, THERAPEUTIC TABLET PO SCH (08:52)
[2020-08-24] MEDS: DiphenhydrAMINE HCL 25 MG/10 ML ELIXIR UDCUP PO PRN ×2 (09:58→17:05)
[2020-08-24] MEDS: OLANZapine 5 MG RAPDIS TABLET PO PRN ×2 (18:35→22:17)
[2020-08-24] MEDS: ZOLPIDEM TARTRATE 10 MG TABLET PO PRN (20:17)
[2020-08-25 01:48] VITALS: BP 124/71
[2020-08-25] MEDS: OLANZapine 5 MG RAPDIS TABLET PO PRN ×3 (03:06→15:37)
[2020-08-25] MEDS: DiphenhydrAMINE HCL 25 MG/10 ML ELIXIR UDCUP PO PRN ×2 (06:41→13:35)
[2020-08-25] MEDS: VALPROIC ACID 250 MG/5 ML SYRUP UDCUP PO SCH ×2 (08:59→22:43)
[2020-08-25] MEDS: MULTIVITAMINS WITH MINERALS, THERAPEUTIC TABLET PO SCH (08:59)
[2020-08-25 09:16] VITALS: BP 120/69
[2020-08-25] MEDS: RisperiDONE CONC 3 MG/3 ML SOLUTION ORAL.SYG PO SCH ×2 (10:24→22:43)
[2020-08-25] MEDS: IBUPROFEN 400 MG TABLET PO PRN (11:52)
[2020-08-25 16:19] VITALS: BP 128/76
[2020-08-25] MEDS ORDERED: DiphenhydrAMINE HCL 50 MG/ML VIAL ONE (20:51)
[2020-08-25] MEDS ORDERED: LORazepam 2 MG/ML VIAL ONE (20:51)
[2020-08-25] MEDS ORDERED: DiphenhydrAMINE HCL 50 MG/ML VIAL IM ONE (21:00)
[2020-08-25] MEDS ORDERED: ChlorproMAZINE HCL 50 MG/2 ML AMP IM ONE (21:00)
[2020-08-25] MEDS ORDERED: LORazepam 2 MG/ML VIAL IM ONE (21:00)
[2020-08-26] VITALS (7 sets, daily range): BP systolic 104–148; BP diastolic 60–91
[2020-08-26] MEDS: MULTIVITAMINS WITH MINERALS, THERAPEUTIC TABLET PO SCH (09:18)
[2020-08-26] MEDS: VALPROIC ACID 250 MG/5 ML SYRUP UDCUP PO SCH ×3 (09:18→21:22)
[2020-08-26] MEDS: RisperiDONE CONC 3 MG/3 ML SOLUTION ORAL.SYG PO SCH ×4 (09:32→21:54)
[2020-08-26] MEDS: OLANZapine 5 MG RAPDIS TABLET PO PRN ×2 (11:50→16:37)
[2020-08-26] MEDS: DiphenhydrAMINE HCL 25 MG/10 ML ELIXIR UDCUP PO PRN (11:52)
[2020-08-26] MEDS: ZOLPIDEM TARTRATE 10 MG TABLET PO PRN (21:57)
[2020-08-27] MEDS: OLANZapine 5 MG RAPDIS TABLET PO PRN ×3 (03:38→13:56)
[2020-08-27] MEDS: DiphenhydrAMINE HCL 25 MG/10 ML ELIXIR UDCUP PO PRN ×3 (03:39→13:56)
[2020-08-27 03:44] VITALS: BP 131/82
[2020-08-27 08:30] VITALS: BP 121/84
[2020-08-27] MEDS: RisperiDONE CONC 3 MG/3 ML SOLUTION ORAL.SYG PO SCH ×2 (08:31→21:18)
[2020-08-27] MEDS: VALPROIC ACID 250 MG/5 ML SYRUP UDCUP PO SCH ×2 (08:31→21:18)
[2020-08-27] MEDS: IBUPROFEN 400 MG TABLET PO PRN (08:31)
[2020-08-27] MEDS: MULTIVITAMINS WITH MINERALS, THERAPEUTIC TABLET PO SCH (08:31)
[2020-08-27] MEDS: ACETAMINOPHEN 325 MG TABLET PO PRN (13:57)
[2020-08-27 16:11] VITALS: BP 123/70
[2020-08-27] MEDS: ZOLPIDEM TARTRATE 10 MG TABLET PO PRN (21:18)
[2020-08-28] MEDS: OLANZapine 5 MG RAPDIS TABLET PO PRN ×4 (02:03→12:05)
[2020-08-28] MEDS: DiphenhydrAMINE HCL 25 MG/10 ML ELIXIR UDCUP PO PRN ×3 (02:19→16:07)
[2020-08-28 08:00] VITALS: BP 120/76
[2020-08-28] MEDS: MULTIVITAMINS WITH MINERALS, THERAPEUTIC TABLET PO SCH (08:03)
[2020-08-28] MEDS: VALPROIC ACID 250 MG/5 ML SYRUP UDCUP PO SCH ×2 (08:04→20:04)
[2020-08-28] MEDS: RisperiDONE CONC 3 MG/3 ML SOLUTION ORAL.SYG PO SCH ×2 (08:04→20:04)
[2020-08-28] MEDS: IBUPROFEN 400 MG TABLET PO PRN (12:01)
[2020-08-28 16:37] VITALS: BP 116/70
[2020-08-28] MEDS: ZOLPIDEM TARTRATE 10 MG TABLET PO PRN (21:51)
[2020-08-29] MEDS: OLANZapine 5 MG RAPDIS TABLET PO PRN ×3 (02:39→16:54)
[2020-08-29] MEDS: DiphenhydrAMINE HCL 25 MG/10 ML ELIXIR UDCUP PO PRN ×3 (02:39→15:51)
[2020-08-29 05:12] VITALS: BP 120/70
[2020-08-29] MEDS: VALPROIC ACID 250 MG/5 ML SYRUP UDCUP PO SCH ×2 (07:59→20:03)
[2020-08-29] MEDS: RisperiDONE CONC 3 MG/3 ML SOLUTION ORAL.SYG PO SCH ×2 (07:59→20:03)
[2020-08-29] MEDS: MULTIVITAMINS WITH MINERALS, THERAPEUTIC TABLET PO SCH (07:59)
[2020-08-29 08:00] VITALS: BP 127/76
[2020-08-29] MEDS: NICOTINE 14 MG/24 HOUR PATCH TD PRN (08:00)
[2020-08-29 16:22] VITALS: BP 110/70
[2020-08-29] MEDS: ZOLPIDEM TARTRATE 10 MG TABLET PO PRN (20:06)
[2020-08-30 01:59] VITALS: BP 140/77
[2020-08-30] MEDS: OLANZapine 5 MG RAPDIS TABLET PO PRN ×4 (02:00→12:11)
[2020-08-30] MEDS: DiphenhydrAMINE HCL 25 MG/10 ML ELIXIR UDCUP PO PRN ×3 (04:15→12:11)
[2020-08-30] MEDS: MULTIVITAMINS WITH MINERALS, THERAPEUTIC TABLET PO SCH (08:04)
[2020-08-30] MEDS: VALPROIC ACID 250 MG/5 ML SYRUP UDCUP PO SCH ×2 (08:04→20:33)
[2020-08-30] MEDS: RisperiDONE CONC 3 MG/3 ML SOLUTION ORAL.SYG PO SCH ×2 (08:04→20:33)
[2020-08-30 11:01] VITALS: BP 114/82
[2020-08-30 16:15] VITALS: BP 109/64
[2020-08-30] MEDS: ACETAMINOPHEN 325 MG TABLET PO PRN (16:15)
[2020-08-30] MEDS: ZOLPIDEM TARTRATE 10 MG TABLET PO PRN (22:03)
[2020-08-31] MEDS: OLANZapine 5 MG RAPDIS TABLET PO PRN ×5 (00:01→16:37)
[2020-08-31] MEDS: DiphenhydrAMINE HCL 25 MG/10 ML ELIXIR UDCUP PO PRN ×4 (00:07→16:56)
[2020-08-31] MEDS: MULTIVITAMINS WITH MINERALS, THERAPEUTIC TABLET PO SCH (07:54)
[2020-08-31] MEDS: RisperiDONE CONC 3 MG/3 ML SOLUTION ORAL.SYG PO SCH ×2 (07:54→20:41)
[2020-08-31] MEDS: VALPROIC ACID 250 MG/5 ML SYRUP UDCUP PO SCH ×2 (07:54→20:42)
[2020-08-31 08:00] VITALS: BP 132/88
[2020-08-31 16:00] VITALS: BP 132/71
[2020-08-31] MEDS: ZOLPIDEM TARTRATE 10 MG TABLET PO PRN (23:45)
[2020-09-01 03:17] VITALS: BP 136/82
[2020-09-01] MEDS: OLANZapine 5 MG RAPDIS TABLET PO PRN ×2 (07:52→12:49)
[2020-09-01] MEDS: DiphenhydrAMINE HCL 25 MG/10 ML ELIXIR UDCUP PO PRN ×2 (07:52→12:49)
[2020-09-01 08:00] VITALS: BP 129/89
[2020-09-01] MEDS: RisperiDONE CONC 3 MG/3 ML SOLUTION ORAL.SYG PO SCH ×2 (08:19→21:07)
[2020-09-01] MEDS: MULTIVITAMINS WITH MINERALS, THERAPEUTIC TABLET PO SCH (08:19)
[2020-09-01] MEDS: VALPROIC ACID 250 MG/5 ML SYRUP UDCUP PO SCH ×2 (08:20→21:07)
[2020-09-01 12:45] LABS: COVID AG,FIA SOURCE NASOPHARYNGEAL
[2020-09-01 16:00] VITALS: BP 110/67
[2020-09-01] MEDS: ZOLPIDEM TARTRATE 10 MG TABLET PO PRN (23:34)
[2020-09-02] MEDS: DiphenhydrAMINE HCL 25 MG/10 ML ELIXIR UDCUP PO PRN ×2 (07:46→11:53)
[2020-09-02] MEDS: OLANZapine 5 MG RAPDIS TABLET PO PRN ×2 (07:46→16:24)
[2020-09-02 08:00] VITALS: BP 122/75
[2020-09-02] MEDS: RisperiDONE CONC 3 MG/3 ML SOLUTION ORAL.SYG PO SCH ×2 (08:11→20:39)
[2020-09-02] MEDS: MULTIVITAMINS WITH MINERALS, THERAPEUTIC TABLET PO SCH (08:11)
[2020-09-02] MEDS: VALPROIC ACID 250 MG/5 ML SYRUP UDCUP PO SCH ×2 (08:11→20:39)
[2020-09-02 17:36] VITALS: BP 117/72
[2020-09-03] MEDS: ZOLPIDEM TARTRATE 10 MG TABLET PO PRN (00:01)
[2020-09-03] MEDS: DiphenhydrAMINE HCL 25 MG/10 ML ELIXIR UDCUP PO PRN ×4 (03:52→16:33)
[2020-09-03] MEDS: OLANZapine 5 MG RAPDIS TABLET PO PRN ×3 (07:42→16:33)
[2020-09-03] MEDS: VALPROIC ACID 250 MG/5 ML SYRUP UDCUP PO SCH ×2 (07:42→20:29)
[2020-09-03] MEDS: RisperiDONE CONC 3 MG/3 ML SOLUTION ORAL.SYG PO SCH ×2 (07:42→20:27)
[2020-09-03] MEDS: MULTIVITAMINS WITH MINERALS, THERAPEUTIC TABLET PO SCH (07:42)
[2020-09-03 08:24] VITALS: BP 123/73
[2020-09-03 16:00] VITALS: BP 113/67
[2020-09-04] MEDS: OLANZapine 5 MG RAPDIS TABLET PO PRN ×3 (02:58→16:04)
[2020-09-04] MEDS: DiphenhydrAMINE HCL 25 MG/10 ML ELIXIR UDCUP PO PRN ×3 (02:59→16:04)
[2020-09-04] MEDS: RisperiDONE CONC 3 MG/3 ML SOLUTION ORAL.SYG PO SCH ×2 (07:41→20:23)
[2020-09-04] MEDS: MULTIVITAMINS WITH MINERALS, THERAPEUTIC TABLET PO SCH (07:42)
[2020-09-04] MEDS: VALPROIC ACID 250 MG/5 ML SYRUP UDCUP PO SCH ×2 (07:43→20:23)
[2020-09-04 08:00] VITALS: BP 134/90
[2020-09-04 16:06] VITALS: BP 121/74
[2020-09-05] MEDS: OLANZapine 5 MG RAPDIS TABLET PO PRN ×3 (03:27→23:43)
[2020-09-05] MEDS: DiphenhydrAMINE HCL 25 MG/10 ML ELIXIR UDCUP PO PRN ×3 (03:27→23:45)
[2020-09-05] MEDS: MULTIVITAMINS WITH MINERALS, THERAPEUTIC TABLET PO SCH (07:44)
[2020-09-05] MEDS: VALPROIC ACID 250 MG/5 ML SYRUP UDCUP PO SCH ×2 (07:44→21:02)
[2020-09-05] MEDS: RisperiDONE CONC 3 MG/3 ML SOLUTION ORAL.SYG PO SCH ×2 (07:45→21:01)
[2020-09-05 08:25] VITALS: BP 130/78
[2020-09-05 16:45] VITALS: BP 110/83
[2020-09-05 23:45] VITALS: BP 109/78
[2020-09-06] MEDS: OLANZapine 5 MG RAPDIS TABLET PO PRN ×2 (06:06→12:00)
[2020-09-06] MEDS: DiphenhydrAMINE HCL 25 MG/10 ML ELIXIR UDCUP PO PRN ×2 (06:07→15:43)
[2020-09-06] MEDS: VALPROIC ACID 250 MG/5 ML SYRUP UDCUP PO SCH ×2 (07:39→20:22)
[2020-09-06] MEDS: MULTIVITAMINS WITH MINERALS, THERAPEUTIC TABLET PO SCH (07:39)
[2020-09-06] MEDS: RisperiDONE CONC 3 MG/3 ML SOLUTION ORAL.SYG PO SCH ×2 (07:40→20:22)
[2020-09-06 08:02] VITALS: BP 132/78
[2020-09-06 16:59] VITALS: BP 118/72
[2020-09-07] MEDS: DiphenhydrAMINE HCL 25 MG/10 ML ELIXIR UDCUP PO PRN ×2 (06:12→12:10)
[2020-09-07] MEDS: OLANZapine 5 MG RAPDIS TABLET PO PRN (06:14)
[2020-09-07] MEDS: MULTIVITAMINS WITH MINERALS, THERAPEUTIC TABLET PO SCH (08:07)
[2020-09-07] MEDS: VALPROIC ACID 250 MG/5 ML SYRUP UDCUP PO SCH ×2 (08:08→20:08)
[2020-09-07] MEDS: RisperiDONE CONC 3 MG/3 ML SOLUTION ORAL.SYG PO SCH ×2 (08:08→20:08)
[2020-09-07 08:32] VITALS: BP 125/82
[2020-09-07 16:29] VITALS: BP 130/77
[2020-09-08 00:40] VITALS: BP 114/63
[2020-09-08] MEDS: OLANZapine 5 MG RAPDIS TABLET PO PRN ×3 (00:42→16:36)
[2020-09-08] MEDS: DiphenhydrAMINE HCL 25 MG/10 ML ELIXIR UDCUP PO PRN ×3 (00:44→15:52)
[2020-09-08] MEDS: VALPROIC ACID 250 MG/5 ML SYRUP UDCUP PO SCH ×2 (08:26→20:24)
[2020-09-08] MEDS: RisperiDONE CONC 3 MG/3 ML SOLUTION ORAL.SYG PO SCH ×2 (08:26→20:24)
[2020-09-08] MEDS: MULTIVITAMINS WITH MINERALS, THERAPEUTIC TABLET PO SCH (08:26)
[2020-09-08 08:40] VITALS: BP 132/77
[2020-09-08 13:43] LABS: COVID AG,FIA SOURCE NASOPHARYNGEAL
[2020-09-08 16:11] VITALS: BP 118/64
[2020-09-09] MEDS: OLANZapine 5 MG RAPDIS TABLET PO PRN ×2 (07:24→12:56)
[2020-09-09] MEDS: MULTIVITAMINS WITH MINERALS, THERAPEUTIC TABLET PO SCH (07:24)
[2020-09-09] MEDS: RisperiDONE CONC 3 MG/3 ML SOLUTION ORAL.SYG PO SCH ×2 (07:26→20:27)
[2020-09-09] MEDS: DiphenhydrAMINE HCL 25 MG/10 ML ELIXIR UDCUP PO PRN ×2 (07:26→12:56)
[2020-09-09] MEDS: VALPROIC ACID 250 MG/5 ML SYRUP UDCUP PO SCH ×2 (07:26→20:27)
[2020-09-09 08:00] VITALS: BP 100/77
[2020-09-09 16:02] VITALS: BP 124/77
[2020-09-10] MEDS: RisperiDONE CONC 3 MG/3 ML SOLUTION ORAL.SYG PO SCH ×2 (07:55→20:42)
[2020-09-10] MEDS: MULTIVITAMINS WITH MINERALS, THERAPEUTIC TABLET PO SCH (07:55)
[2020-09-10] MEDS: VALPROIC ACID 250 MG/5 ML SYRUP UDCUP PO SCH ×2 (07:55→20:42)
[2020-09-10] MEDS: OLANZapine 5 MG RAPDIS TABLET PO PRN ×2 (07:56→12:19)
[2020-09-10] MEDS: DiphenhydrAMINE HCL 25 MG/10 ML ELIXIR UDCUP PO PRN ×2 (07:56→12:25)
[2020-09-10 08:24] VITALS: BP 128/79
[2020-09-10 16:14] VITALS: BP 133/73
[2020-09-11] MEDS: OLANZapine 5 MG RAPDIS TABLET PO PRN ×2 (07:59→15:50)
[2020-09-11] MEDS: DiphenhydrAMINE HCL 25 MG/10 ML ELIXIR UDCUP PO PRN ×2 (07:59→15:52)
[2020-09-11] MEDS: VALPROIC ACID 250 MG/5 ML SYRUP UDCUP PO SCH ×2 (07:59→20:41)
[2020-09-11] MEDS: MULTIVITAMINS WITH MINERALS, THERAPEUTIC TABLET PO SCH (07:59)
[2020-09-11] MEDS: RisperiDONE CONC 3 MG/3 ML SOLUTION ORAL.SYG PO SCH ×2 (07:59→20:41)
[2020-09-11 08:00] VITALS: BP 126/79
[2020-09-11 16:30] VITALS: BP 130/82
[2020-09-12] MEDS: RisperiDONE CONC 3 MG/3 ML SOLUTION ORAL.SYG PO SCH ×2 (07:35→20:59)
[2020-09-12] MEDS: OLANZapine 5 MG RAPDIS TABLET PO PRN ×2 (07:35→14:40)
[2020-09-12] MEDS: DiphenhydrAMINE HCL 25 MG/10 ML ELIXIR UDCUP PO PRN ×2 (07:35→15:56)
[2020-09-12] MEDS: VALPROIC ACID 250 MG/5 ML SYRUP UDCUP PO SCH ×2 (07:35→20:59)
[2020-09-12] MEDS: MULTIVITAMINS WITH MINERALS, THERAPEUTIC TABLET PO SCH (07:35)
[2020-09-12 08:00] VITALS: BP 117/73
[2020-09-12 16:24] VITALS: BP 98/61
[2020-09-13 07:11] LABS: EOSINOPHILS % (AUTO) 3.2 % (1.0-6.0); HEMATOCRIT 45.3 % (41-53); HEMOGLOBIN 14.7 g/dL (13.5-17.5); LYMPHOCYTES # (AUTO) 2.1 K/uL (1.0-4.8); LYMPHOCYTES % (AUTO) 23.6 % (22.0-44.0); MEAN CORPUSCULAR HEMOGLOBIN 28.8 pg (26.0-34.0); MEAN CORPUSCULAR HGB CONC 32.6 G/dL (31.0-37.0); MEAN CORPUSCULAR VOLUME 88 fL (80-100); MONOCYTES # (AUTO) 0.7 K/uL (0.1-1.0); MONOCYTES % (AUTO) 7.8 % (2.0-9.0); NEUTROPHILS # (AUTO) 5.7 K/uL (1.8-7.7); NEUTROPHILS % (AUTO) 64.4 % (40.0-70.0); PLATELET COUNT (AUTO) 183 K/uL (150-450); RED BLOOD CELL COUNT(AUTO) 5.12 MIL/uL (4.50-5.90); RED CELL DISTRIBUTION WIDTH 14.5 % (11.5-14.5)
[2020-09-13 07:21] LABS: ANION GAP 8 mmol/L (8-16); CALCIUM, TOTAL 8.8 mg/dL (8.8-10.5); CARBON DIOXIDE 28 mmol/L (22-29); CHLORIDE 105 mmol/L (98-107); CREATININE 0.93 mg/dL (0.60-1.30); GLOMERULAR FILTR. RATE CALC > 60 mL/min (>60); GLUCOSE,RANDOM 91 mg/dL (70-110); POTASSIUM 4.3 mmol/L (3.5-5.1); SODIUM SERUM 141 mmol/L (136-145); UREA NITROGEN, BLOOD 14 mg/dL (7-18)
[2020-09-13] MEDS: MULTIVITAMINS WITH MINERALS, THERAPEUTIC TABLET PO SCH (08:04)
[2020-09-13] MEDS: RisperiDONE CONC 3 MG/3 ML SOLUTION ORAL.SYG PO SCH ×2 (08:04→20:13)
[2020-09-13] MEDS: VALPROIC ACID 250 MG/5 ML SYRUP UDCUP PO SCH ×2 (08:05→20:13)
[2020-09-13] MEDS: IBUPROFEN 400 MG TABLET PO PRN (08:09)
[2020-09-13 09:38] VITALS: BP 113/67
[2020-09-13] MEDS: DiphenhydrAMINE HCL 25 MG/10 ML ELIXIR UDCUP PO PRN (15:46)
[2020-09-13] MEDS: OLANZapine 5 MG RAPDIS TABLET PO PRN (15:47)
[2020-09-13 17:33] VITALS: BP 104/66
[2020-09-14 08:00] VITALS: BP 142/85
[2020-09-14] MEDS: OLANZapine 5 MG RAPDIS TABLET PO PRN ×2 (08:00→12:47)
[2020-09-14] MEDS: MULTIVITAMINS WITH MINERALS, THERAPEUTIC TABLET PO SCH (08:00)
[2020-09-14] MEDS: RisperiDONE CONC 3 MG/3 ML SOLUTION ORAL.SYG PO SCH ×2 (08:00→20:00)
[2020-09-14] MEDS: VALPROIC ACID 250 MG/5 ML SYRUP UDCUP PO SCH ×2 (08:00→19:59)
[2020-09-14] MEDS: IBUPROFEN 400 MG TABLET PO PRN ×2 (08:04→16:23)
[2020-09-14] MEDS: DiphenhydrAMINE HCL 25 MG/10 ML ELIXIR UDCUP PO PRN ×2 (08:04→12:47)
[2020-09-14] MEDS: ACETAMINOPHEN 325 MG TABLET PO PRN (12:50)
[2020-09-14 16:03] VITALS: BP 112/75
[2020-09-14 16:44] VITALS: BP 112/75
[2020-09-15 08:01] VITALS: BP 113/75
[2020-09-15] MEDS: MULTIVITAMINS WITH MINERALS, THERAPEUTIC TABLET PO SCH (08:14)
[2020-09-15] MEDS: RisperiDONE CONC 3 MG/3 ML SOLUTION ORAL.SYG PO SCH ×2 (08:14→20:46)
[2020-09-15] MEDS: VALPROIC ACID 250 MG/5 ML SYRUP UDCUP PO SCH ×2 (08:14→20:46)
[2020-09-15] MEDS: OLANZapine 5 MG RAPDIS TABLET PO PRN (08:17)
[2020-09-15] MEDS: DiphenhydrAMINE HCL 25 MG/10 ML ELIXIR UDCUP PO PRN (08:18)
[2020-09-15 12:49] LABS: COVID AG,FIA SOURCE NASOPHARYNGEAL
[2020-09-15 16:16] VITALS: BP 118/72
[2020-09-16] MEDS: OLANZapine 5 MG RAPDIS TABLET PO PRN ×2 (08:03→16:09)
[2020-09-16] MEDS: MULTIVITAMINS WITH MINERALS, THERAPEUTIC TABLET PO SCH (08:03)
[2020-09-16] MEDS: VALPROIC ACID 250 MG/5 ML SYRUP UDCUP PO SCH ×2 (08:03→20:08)
[2020-09-16] MEDS: RisperiDONE CONC 3 MG/3 ML SOLUTION ORAL.SYG PO SCH ×2 (08:03→20:12)
[2020-09-16] MEDS: DiphenhydrAMINE HCL 25 MG/10 ML ELIXIR UDCUP PO PRN ×2 (08:03→16:09)
[2020-09-16 08:31] VITALS: BP 121/68
[2020-09-16] MEDS: IBUPROFEN 400 MG TABLET PO PRN (08:34)
[2020-09-16 16:19] VITALS: BP 128/76
[2020-09-17] MEDS: RisperiDONE CONC 3 MG/3 ML SOLUTION ORAL.SYG PO SCH ×2 (07:57→20:12)
[2020-09-17] MEDS: DiphenhydrAMINE HCL 25 MG/10 ML ELIXIR UDCUP PO PRN ×2 (07:57→14:07)
[2020-09-17] MEDS: MULTIVITAMINS WITH MINERALS, THERAPEUTIC TABLET PO SCH (07:57)
[2020-09-17] MEDS: VALPROIC ACID 250 MG/5 ML SYRUP UDCUP PO SCH ×2 (07:57→20:12)
[2020-09-17] MEDS: OLANZapine 5 MG RAPDIS TABLET PO PRN ×2 (07:57→14:07)
[2020-09-17 08:11] VITALS: BP 131/84
[2020-09-17 16:28] VITALS: BP 122/70
[2020-09-18 08:00] VITALS: BP 126/77
[2020-09-18] MEDS: RisperiDONE CONC 3 MG/3 ML SOLUTION ORAL.SYG PO SCH ×2 (08:10→20:08)
[2020-09-18] MEDS: VALPROIC ACID 250 MG/5 ML SYRUP UDCUP PO SCH ×2 (08:10→20:08)
[2020-09-18] MEDS: DiphenhydrAMINE HCL 25 MG/10 ML ELIXIR UDCUP PO PRN ×2 (08:11→16:46)
[2020-09-18] MEDS: OLANZapine 5 MG RAPDIS TABLET PO PRN ×2 (08:11→16:45)
[2020-09-18] MEDS: MULTIVITAMINS WITH MINERALS, THERAPEUTIC TABLET PO SCH (08:11)
[2020-09-18] MEDS: ACETAMINOPHEN 325 MG TABLET PO PRN (15:48)
[2020-09-18 16:18] VITALS: BP 108/74
[2020-09-19 01:07] VITALS: BP 144/88
[2020-09-19 08:00] VITALS: BP 111/71
[2020-09-19] MEDS: OLANZapine 5 MG RAPDIS TABLET PO PRN (08:14)
[2020-09-19] MEDS: RisperiDONE CONC 3 MG/3 ML SOLUTION ORAL.SYG PO SCH ×2 (08:14→20:47)
[2020-09-19] MEDS: MULTIVITAMINS WITH MINERALS, THERAPEUTIC TABLET PO SCH (08:14)
[2020-09-19] MEDS: VALPROIC ACID 250 MG/5 ML SYRUP UDCUP PO SCH ×2 (08:14→20:49)
[2020-09-19] MEDS: DiphenhydrAMINE HCL 25 MG/10 ML ELIXIR UDCUP PO PRN (08:15)
[2020-09-20 08:00] VITALS: BP 131/78
[2020-09-20] MEDS: DiphenhydrAMINE HCL 25 MG/10 ML ELIXIR UDCUP PO PRN ×2 (08:14→14:44)
[2020-09-20] MEDS: MULTIVITAMINS WITH MINERALS, THERAPEUTIC TABLET PO SCH (08:14)
[2020-09-20] MEDS: RisperiDONE CONC 3 MG/3 ML SOLUTION ORAL.SYG PO SCH ×2 (08:14→21:16)
[2020-09-20] MEDS: OLANZapine 5 MG RAPDIS TABLET PO PRN (08:15)
[2020-09-20] MEDS: VALPROIC ACID 250 MG/5 ML SYRUP UDCUP PO SCH ×2 (08:15→21:16)
[2020-09-20 16:53] VITALS: BP 106/70
[2020-09-21 08:00] VITALS: BP 125/58
[2020-09-21] MEDS: RisperiDONE CONC 3 MG/3 ML SOLUTION ORAL.SYG PO SCH ×2 (08:25→21:00)
[2020-09-21] MEDS: VALPROIC ACID 250 MG/5 ML SYRUP UDCUP PO SCH ×2 (08:25→21:00)
[2020-09-21] MEDS: OLANZapine 5 MG RAPDIS TABLET PO PRN (08:25)
[2020-09-21] MEDS: MULTIVITAMINS WITH MINERALS, THERAPEUTIC TABLET PO SCH (08:25)
[2020-09-21] MEDS: DiphenhydrAMINE HCL 25 MG/10 ML ELIXIR UDCUP PO PRN ×2 (08:26→17:40)
[2020-09-21] MEDS ORDERED: TUBERCULIN, PURIFIED PROTEIN DERIVATIVE 5 TU/0.1 ML SYRINGE ID ONE (17:15)
[2020-09-21 17:45] VITALS: BP_SYST 12; BP_SYST 120; BP_DIAS 77
[2020-09-22 08:00] VITALS: BP 115/72
[2020-09-22] MEDS: RisperiDONE CONC 3 MG/3 ML SOLUTION ORAL.SYG PO SCH ×2 (08:17→20:22)
[2020-09-22] MEDS: VALPROIC ACID 250 MG/5 ML SYRUP UDCUP PO SCH ×2 (08:18→20:22)
[2020-09-22] MEDS: MULTIVITAMINS WITH MINERALS, THERAPEUTIC TABLET PO SCH (08:18)
[2020-09-22 12:41] LABS: COVID AG,FIA SOURCE NASOPHARYNGEAL
[2020-09-22 16:05] VITALS: BP 119/78
[2020-09-23 06:12] VITALS: BP 121/71
[2020-09-23] MEDS: MULTIVITAMINS WITH MINERALS, THERAPEUTIC TABLET PO SCH (09:58)
[2020-09-23] MEDS: VALPROIC ACID 250 MG/5 ML SYRUP UDCUP PO SCH ×2 (09:58→20:17)
[2020-09-23] MEDS: RisperiDONE CONC 3 MG/3 ML SOLUTION ORAL.SYG PO SCH ×2 (09:58→20:17)
[2020-09-23 16:03] VITALS: BP 147/83
[2020-09-24] MEDS: MULTIVITAMINS WITH MINERALS, THERAPEUTIC TABLET PO SCH (08:08)
[2020-09-24] MEDS: VALPROIC ACID 250 MG/5 ML SYRUP UDCUP PO SCH ×2 (08:08→20:05)
[2020-09-24] MEDS: RisperiDONE CONC 3 MG/3 ML SOLUTION ORAL.SYG PO SCH ×2 (08:08→20:05)
[2020-09-24 08:29] VITALS: BP 124/73
[2020-09-24 16:03] VITALS: BP 126/66
[2020-09-24] MEDS: DiphenhydrAMINE HCL 25 MG/10 ML ELIXIR UDCUP PO PRN (17:22)
[2020-09-25] MEDS: OLANZapine 5 MG RAPDIS TABLET PO PRN (07:49)
[2020-09-25] MEDS: VALPROIC ACID 250 MG/5 ML SYRUP UDCUP PO SCH ×2 (07:49→20:13)
[2020-09-25] MEDS: RisperiDONE CONC 3 MG/3 ML SOLUTION ORAL.SYG PO SCH ×2 (07:49→20:13)
[2020-09-25] MEDS: DiphenhydrAMINE HCL 25 MG/10 ML ELIXIR UDCUP PO PRN ×2 (07:49→18:20)
[2020-09-25] MEDS: MULTIVITAMINS WITH MINERALS, THERAPEUTIC TABLET PO SCH (07:49)
[2020-09-25 08:00] VITALS: BP 130/75
[2020-09-25] MEDS: IBUPROFEN 400 MG TABLET PO PRN ×2 (13:38→21:38)
[2020-09-25 16:25] VITALS: BP 126/80
[2020-09-25 21:38] VITALS: BP 143/85
[2020-09-26] MEDS: VALPROIC ACID 250 MG/5 ML SYRUP UDCUP PO SCH ×2 (07:35→20:26)
[2020-09-26] MEDS: OLANZapine 5 MG RAPDIS TABLET PO PRN ×2 (07:35→16:27)
[2020-09-26] MEDS: MULTIVITAMINS WITH MINERALS, THERAPEUTIC TABLET PO SCH (07:35)
[2020-09-26] MEDS: RisperiDONE CONC 3 MG/3 ML SOLUTION ORAL.SYG PO SCH ×2 (07:36→20:26)
[2020-09-26] MEDS: DiphenhydrAMINE HCL 25 MG/10 ML ELIXIR UDCUP PO PRN ×2 (07:38→15:36)
[2020-09-26 08:00] VITALS: BP 130/83
[2020-09-26] MEDS: IBUPROFEN 400 MG TABLET PO PRN (10:48)
[2020-09-26] MEDS: ACETAMINOPHEN 325 MG TABLET PO PRN (15:44)
[2020-09-26 16:19] VITALS: BP 131/83
[2020-09-27] MEDS: MULTIVITAMINS WITH MINERALS, THERAPEUTIC TABLET PO SCH (07:58)
[2020-09-27] MEDS: VALPROIC ACID 250 MG/5 ML SYRUP UDCUP PO SCH ×2 (07:58→20:06)
[2020-09-27] MEDS: OLANZapine 5 MG RAPDIS TABLET PO PRN (07:58)
[2020-09-27] MEDS: DiphenhydrAMINE HCL 25 MG/10 ML ELIXIR UDCUP PO PRN (07:58)
[2020-09-27] MEDS: RisperiDONE CONC 3 MG/3 ML SOLUTION ORAL.SYG PO SCH ×2 (07:58→20:06)
[2020-09-27 08:38] VITALS: BP 140/79
[2020-09-27 16:07] VITALS: BP_SYST 123; BP_SYST 223; BP_DIAS 75
[2020-09-28 00:10] VITALS: BP 128/77
[2020-09-28] MEDS: OLANZapine 5 MG RAPDIS TABLET PO PRN ×2 (07:50→16:25)
[2020-09-28] MEDS: MULTIVITAMINS WITH MINERALS, THERAPEUTIC TABLET PO SCH (07:50)
[2020-09-28] MEDS: VALPROIC ACID 250 MG/5 ML SYRUP UDCUP PO SCH ×2 (07:50→20:05)
[2020-09-28] MEDS: DiphenhydrAMINE HCL 25 MG/10 ML ELIXIR UDCUP PO PRN (07:50)
[2020-09-28] MEDS: RisperiDONE CONC 3 MG/3 ML SOLUTION ORAL.SYG PO SCH ×2 (07:50→20:05)
[2020-09-28 08:24] VITALS: BP 119/81
[2020-09-28 16:05] VITALS: BP 123/75
[2020-09-29 08:00] VITALS: BP 132/79
[2020-09-29] MEDS: MULTIVITAMINS WITH MINERALS, THERAPEUTIC TABLET PO SCH (08:12)
[2020-09-29] MEDS: VALPROIC ACID 250 MG/5 ML SYRUP UDCUP PO SCH ×2 (08:12→20:36)
[2020-09-29] MEDS: RisperiDONE CONC 3 MG/3 ML SOLUTION ORAL.SYG PO SCH ×2 (08:12→20:37)
[2020-09-29 14:58] LABS: COVID AG,FIA SOURCE NASOPHARYNGEAL
[2020-09-29 16:00] VITALS: BP 118/75
[2020-09-30 08:00] VITALS: BP 130/83
[2020-09-30] MEDS: RisperiDONE CONC 3 MG/3 ML SOLUTION ORAL.SYG PO SCH ×2 (08:04→20:33)
[2020-09-30] MEDS: VALPROIC ACID 250 MG/5 ML SYRUP UDCUP PO SCH ×2 (08:04→20:32)
[2020-09-30] MEDS: DiphenhydrAMINE HCL 25 MG/10 ML ELIXIR UDCUP PO PRN ×2 (08:04→17:19)
[2020-09-30] MEDS: MULTIVITAMINS WITH MINERALS, THERAPEUTIC TABLET PO SCH (08:04)
[2020-09-30] MEDS: OLANZapine 5 MG RAPDIS TABLET PO PRN (08:04)
[2020-09-30 16:00] VITALS: BP 131/77
[2020-10-01] MEDS: OLANZapine 5 MG RAPDIS TABLET PO PRN (07:55)
[2020-10-01] MEDS: RisperiDONE CONC 3 MG/3 ML SOLUTION ORAL.SYG PO SCH ×2 (07:55→20:07)
[2020-10-01] MEDS: DiphenhydrAMINE HCL 25 MG/10 ML ELIXIR UDCUP PO PRN (07:55)
[2020-10-01] MEDS: VALPROIC ACID 250 MG/5 ML SYRUP UDCUP PO SCH ×2 (07:55→20:07)
[2020-10-01] MEDS: MULTIVITAMINS WITH MINERALS, THERAPEUTIC TABLET PO SCH (07:55)
[2020-10-01] MEDS: NICOTINE 14 MG/24 HOUR PATCH TD PRN (07:59)
[2020-10-01 08:45] VITALS: BP 106/58
[2020-10-01 16:20] VITALS: BP 126/67
[2020-10-02 08:00] VITALS: BP 137/79
[2020-10-02] MEDS: VALPROIC ACID 250 MG/5 ML SYRUP UDCUP PO SCH ×2 (08:37→20:36)
[2020-10-02] MEDS: MULTIVITAMINS WITH MINERALS, THERAPEUTIC TABLET PO SCH (08:38)
[2020-10-02] MEDS: RisperiDONE CONC 3 MG/3 ML SOLUTION ORAL.SYG PO SCH ×2 (08:38→20:36)
[2020-10-02] MEDS: DiphenhydrAMINE HCL 25 MG/10 ML ELIXIR UDCUP PO PRN (08:40)
[2020-10-02] MEDS: OLANZapine 5 MG RAPDIS TABLET PO PRN (08:42)
[2020-10-02 16:01] VITALS: BP 139/78
[2020-10-03 08:00] VITALS: BP 154/92
[2020-10-03] MEDS: MULTIVITAMINS WITH MINERALS, THERAPEUTIC TABLET PO SCH (08:43)
[2020-10-03] MEDS: VALPROIC ACID 250 MG/5 ML SYRUP UDCUP PO SCH ×2 (08:43→20:08)
[2020-10-03] MEDS: RisperiDONE CONC 3 MG/3 ML SOLUTION ORAL.SYG PO SCH ×2 (08:43→20:08)
[2020-10-03 16:09] VITALS: BP 142/86
[2020-10-04 08:00] VITALS: BP 157/80
[2020-10-04] MEDS: RisperiDONE CONC 3 MG/3 ML SOLUTION ORAL.SYG PO SCH ×2 (08:35→20:03)
[2020-10-04] MEDS: MULTIVITAMINS WITH MINERALS, THERAPEUTIC TABLET PO SCH (08:35)
[2020-10-04] MEDS: VALPROIC ACID 250 MG/5 ML SYRUP UDCUP PO SCH ×2 (08:35→20:03)
[2020-10-04] MEDS: DiphenhydrAMINE HCL 25 MG/10 ML ELIXIR UDCUP PO PRN (16:21)
[2020-10-04] MEDS: OLANZapine 5 MG RAPDIS TABLET PO PRN ×2 (16:22→16:26)
[2020-10-04 16:27] VITALS: BP 110/64
[2020-10-05] MEDS: RisperiDONE CONC 3 MG/3 ML SOLUTION ORAL.SYG PO SCH ×2 (07:57→20:01)
[2020-10-05] MEDS: DiphenhydrAMINE HCL 25 MG/10 ML ELIXIR UDCUP PO PRN ×3 (07:57→20:11)
[2020-10-05] MEDS: OLANZapine 5 MG RAPDIS TABLET PO PRN ×2 (07:57→15:39)
[2020-10-05] MEDS: MULTIVITAMINS WITH MINERALS, THERAPEUTIC TABLET PO SCH (07:57)
[2020-10-05] MEDS: VALPROIC ACID 250 MG/5 ML SYRUP UDCUP PO SCH ×2 (07:58→20:01)
[2020-10-05 08:00] VITALS: BP 135/86
[2020-10-05 16:02] VITALS: BP 141/89
[2020-10-06] MEDS: IBUPROFEN 400 MG TABLET PO PRN ×3 (00:20→17:53)
[2020-10-06 00:40] VITALS: BP 139/97
[2020-10-06] MEDS: DiphenhydrAMINE HCL 25 MG/10 ML ELIXIR UDCUP PO PRN ×2 (00:41→08:25)
[2020-10-06 01:40] VITALS: BP 134/84
[2020-10-06] MEDS: ZOLPIDEM TARTRATE 10 MG TABLET PO PRN (01:52)
[2020-10-06] MEDS: OLANZapine 5 MG RAPDIS TABLET PO PRN (03:52)
[2020-10-06 08:00] VITALS: BP 145/86
[2020-10-06] MEDS: MULTIVITAMINS WITH MINERALS, THERAPEUTIC TABLET PO SCH (08:17)
[2020-10-06] MEDS: VALPROIC ACID 250 MG/5 ML SYRUP UDCUP PO SCH ×2 (08:23→20:05)
[2020-10-06] MEDS: RisperiDONE CONC 3 MG/3 ML SOLUTION ORAL.SYG PO SCH ×2 (08:23→20:05)
[2020-10-06 16:00] VITALS: BP 134/91
[2020-10-06 17:46] VITALS: BP 142/93
[2020-10-07 08:24] VITALS: BP 107/58
[2020-10-07] MEDS: VALPROIC ACID 250 MG/5 ML SYRUP UDCUP PO SCH ×2 (08:46→20:30)
[2020-10-07] MEDS: DiphenhydrAMINE HCL 25 MG/10 ML ELIXIR UDCUP PO PRN ×2 (08:46→15:52)
[2020-10-07] MEDS: RisperiDONE CONC 3 MG/3 ML SOLUTION ORAL.SYG PO SCH ×2 (08:47→20:30)
[2020-10-07] MEDS: MULTIVITAMINS WITH MINERALS, THERAPEUTIC TABLET PO SCH (08:47)
[2020-10-07] MEDS: OLANZapine 5 MG RAPDIS TABLET PO PRN (08:47)
[2020-10-07 12:27] LABS: COVID AG,FIA SOURCE NASAL SWAB
[2020-10-07 16:15] VITALS: BP 144/96
[2020-10-07 18:30] VITALS: BP 135/85
[2020-10-07] MEDS: IBUPROFEN 400 MG TABLET PO PRN (18:32)
[2020-10-07 19:30] VITALS: BP 130/78
[2020-10-08] MEDS: DiphenhydrAMINE HCL 25 MG/10 ML ELIXIR UDCUP PO PRN ×2 (07:43→12:43)
[2020-10-08] MEDS: MULTIVITAMINS WITH MINERALS, THERAPEUTIC TABLET PO SCH (08:03)
[2020-10-08] MEDS: VALPROIC ACID 250 MG/5 ML SYRUP UDCUP PO SCH ×2 (08:03→20:27)
[2020-10-08] MEDS: RisperiDONE CONC 3 MG/3 ML SOLUTION ORAL.SYG PO SCH ×2 (08:04→20:27)
[2020-10-08] MEDS: IBUPROFEN 400 MG TABLET PO PRN ×2 (08:04→17:02)
[2020-10-08 08:53] VITALS: BP 150/88
[2020-10-08 16:08] VITALS: BP 122/70
[2020-10-08 17:02] VITALS: BP 114/76
[2020-10-09 08:00] VITALS: BP 119/84
[2020-10-09] MEDS: RisperiDONE CONC 3 MG/3 ML SOLUTION ORAL.SYG PO SCH ×2 (08:59→20:02)
[2020-10-09] MEDS: MULTIVITAMINS WITH MINERALS, THERAPEUTIC TABLET PO SCH (08:59)
[2020-10-09] MEDS: OLANZapine 5 MG RAPDIS TABLET PO PRN (08:59)
[2020-10-09] MEDS: DiphenhydrAMINE HCL 25 MG/10 ML ELIXIR UDCUP PO PRN (09:00)
[2020-10-09] MEDS: VALPROIC ACID 250 MG/5 ML SYRUP UDCUP PO SCH ×2 (09:00→20:02)
[2020-10-09] MEDS: IBUPROFEN 400 MG TABLET PO PRN (09:45)
[2020-10-10] MEDS: OLANZapine 5 MG RAPDIS TABLET PO PRN (07:57)
[2020-10-10] MEDS: MULTIVITAMINS WITH MINERALS, THERAPEUTIC TABLET PO SCH (07:57)
[2020-10-10] MEDS: VALPROIC ACID 250 MG/5 ML SYRUP UDCUP PO SCH (07:58)
[2020-10-10] MEDS: RisperiDONE CONC 3 MG/3 ML SOLUTION ORAL.SYG PO SCH (07:58)
[2020-10-10] MEDS: DiphenhydrAMINE HCL 25 MG/10 ML ELIXIR UDCUP PO PRN (07:58)
== END 2020-10-10 14:15 | DRG 750 ==
LOC: EMS 16:08 → B3A 19:00 → 3EC 08-26 20:42
DX: F25.0 Schizoaffective disorder, bipolar type (principal); Z59.0 Homelessness; D64.9 Anemia, unspecified; F11.10 Opioid abuse, uncomplicated; F15.10 Other stimulant abuse, uncomplicated; E87.6 Hypokalemia; F06.4 Anxiety disorder due to known physiological condition; Z20.822 Contact with and (suspected) exposure to COVID-19; F41.9 Anxiety disorder, unspecified; R45.87 Impulsiveness; R73.9 Hyperglycemia, unspecified; Z28.21 Immunization not carried out because of patient refusal
CPT/HCPCS: 80048; 80053; 80164; 84132; 85025; 87426; 90686; 99285; G0480; J1200; J1630; J2060; J3230

== ENCOUNTER 2020-08-26 18:29 | Emergency (ER) | payer MEDICAID ==
[~2020-08-26] VITALS: Ht 172.7 cm; Wt 59.1 kg
[~2020-08-26 18:29] MED LIST changes: -RISP1TAB48 PO; +RISP2TAB45 PO
[2020-08-26] MEDS ORDERED: IBUPROFEN 600 MG TABLET PO ONE (20:15)
[2020-08-26] MEDS ORDERED: LORazepam 2 MG TABLET PO ONE (20:15)
[2020-08-26 20:17] LABS: COVID AG,FIA SOURCE NASOPHARYNGEAL
[2020-08-26 21:03] VITALS: BP 143/80
== END 2020-08-26 21:07 | disposition home or self-care (01) ==
LOC: EMS 18:29
DX: F25.9 Schizoaffective disorder, unspecified (principal); F69 Unspecified disorder of adult personality and behavior; F17.210 Nicotine dependence, cigarettes, uncomplicated; F12.90 Cannabis use, unspecified, uncomplicated; Z20.822 Contact with and (suspected) exposure to COVID-19; Y04.2XXA Assault by strike against or bumped into by another person, initial encounter; Y93.89 Activity, other specified; Y92.89 Other specified places as the place of occurrence of the external cause; Y99.8 Other external cause status
CPT/HCPCS: 87426; 99283

== ENCOUNTER 2024-08-21 12:27 | Inpatient (IN) | payer MEDICAID ==
[~2024-08-21] VITALS: Ht 172.7 cm; Wt 67.4 kg
[2024-08-21 14:14] LABS: BASOPHILS % (AUTO) 1.1 % (0.0-2.0); EOSINOPHILS % (AUTO) 1.1 % (1.0-6.0); HEMATOCRIT 41.2 % (41-53); HEMOGLOBIN 13.7 g/dL (13.5-17.5); LYMPHOCYTES # (AUTO) 1.7 K/uL (1.0-4.8); LYMPHOCYTES % (AUTO) 26.6 % (22.0-44.0); MEAN CORPUSCULAR HEMOGLOBIN 29.5 pg (26.0-34.0); MEAN CORPUSCULAR HGB CONC 33.3 G/dL (31.0-37.0); MEAN CORPUSCULAR VOLUME 89 fL (80-100); MONOCYTES # (AUTO) 0.6 K/uL (0.1-1.0); MONOCYTES % (AUTO) 8.8 % (2.0-9.0); NEUTROPHILS # (AUTO) 4.1 K/uL (1.8-7.7); NEUTROPHILS % (AUTO) 62.4 % (40.0-70.0); PLATELET COUNT (AUTO) 271 K/uL (150-450); RED BLOOD CELL COUNT(AUTO) 4.65 MIL/uL (4.50-5.90); WHITE BLOOD COUNT (AUTO) 6.5 K/uL (4.5-11.0)
[2024-08-21 14:23] LABS: ANION GAP 9 mmol/L (8-16); CALCIUM, TOTAL 8.7 mg/dL (8.8-10.5); CARBON DIOXIDE 31 mmol/L (22-29); CHLORIDE 102 mmol/L (98-107); GLOMERULAR FILTR. RATE CALC > 60 mL/min (>60); GLUCOSE,RANDOM 94 mg/dL (70-110); POTASSIUM 3.5 mmol/L (3.5-5.1); SODIUM SERUM 142 mmol/L (136-145); UREA NITROGEN, BLOOD 11 mg/dL (7-18)
[2024-08-21 14:31] LABS: ALCOHOL, BLOOD (SERUM) < 3 mg/dL (0-10)
[2024-08-21 15:36] LABS: COVID AG,FIA SOURCE NASAL SWAB
[2024-08-21 15:57] LABS: SARS-COV2 (COVID) ANTIGEN,FIA Negative (Negative)
[2024-08-21 16:12] LABS: APPEARANCE,URINE TURBID (CLEAR); BILIRUBIN,URINE NEGATIVE (NEGATIVE); COLOR,URINE YELLOW (YELLOW); GLUCOSE, URINE (UA) NEGATIVE (NEGATIVE); KETONES,URINE NEGATIVE (NEGATIVE); LEUKOCYTE ESTERASE ,URINE NEGATIVE (NEGATIVE); NITRATE,URINE NEGATIVE (NEGATIVE); OCCULT BLOOD,URINE NEGATIVE (NEGATIVE); PH,URINE 7.5 (5.0-8.0); PH,URINE DRUG SCREEN 7.5 (5.0-8.0); PROTEIN,URINE TRACE mg/dL (NEGATIVE); UROBILINOGEN,URINE <=1.0 mg/dL (<=1.0)
[2024-08-21 16:19] LABS: ALCOHOL, URINE DRUG SCREEN NEGATIVE (NEGATIVE); AMPHET/METH SCREEN,URINE POSITIVE (NEGATIVE); BARBITURATE SCREEN, URINE NEGATIVE (NEGATIVE); BENZODIAZEPINES SCREEN,URINE NEGATIVE (NEGATIVE); CANNABINOID SCREEN,URINE POSITIVE (NEGATIVE); COCAINE SCREEN,URINE NEGATIVE (NEGATIVE); METHADONE SCREEN, URINE NEGATIVE (NEGATIVE); OPIATE SCREEN,URINE NEGATIVE (NEGATIVE); PHENCYCLIDINE SCREEN,URINE NEGATIVE (NEGATIVE)
[2024-08-22 05:49] LABS: CHOL/HDL RATIO 2.2 (4.2-7.3)
[2024-08-22 05:50] LABS: HEMOGLOBIN A1C 5.3 % (3.8-5.6)
[2024-08-22 09:15] VITALS: O2SAT 100
[2024-08-22] MEDS: LORazepam 2 MG TABLET PO PRN (12:18)
[2024-08-22] MEDS: HALOPERIDOL 5 MG TABLET PO PRN (12:18)
[2024-08-22 12:52] VITALS: BP 112/73; PULSE 115; RESP 16; TEMP 98; O2SAT 98
[2024-08-22] MEDS: ZOLPIDEM TARTRATE 10 MG TABLET PO PRN (20:10)
[2024-08-22 20:16] VITALS: BP 117/80; PULSE 107; RESP 17; TEMP 97.2; O2SAT 98
[2024-08-23 09:07] VITALS: BP 129/96; PULSE 107; RESP 18; TEMP 97.3; O2SAT 97
[2024-08-23] MEDS: ChlorproMAZINE HCL 50 MG TABLET PO SCH (16:59)
[2024-08-23 20:13] VITALS: BP 115/89; PULSE 100; RESP 18; TEMP 97.5; O2SAT 98
[2024-08-23] MEDS: DIVALPROEX SODIUM 500 MG DR TABLET PO SCH (21:29)
[2024-08-24 09:02] VITALS: BP 159/99; PULSE 110; RESP 19; TEMP 97.8; O2SAT 98
[2024-08-24 16:41] VITALS: BP 142/92; PULSE 102; RESP 18; TEMP 97.8
[2024-08-24] MEDS: CARVEDILOL 3.125 MG TABLET PO SCH (16:42)
[2024-08-24 20:47] VITALS: BP 137/49; PULSE 98; RESP 16; TEMP 98.9; O2SAT 99
[2024-08-25 08:37] VITALS: BP 112/73; PULSE 100; RESP 17; TEMP 97.9; O2SAT 98
[2024-08-25] MEDS ORDERED: PALI234D IM (11:31)
[2024-08-25 20:04] VITALS: BP 110/67; PULSE 70; RESP 16; TEMP 97.8; O2SAT 99
[2024-08-26 08:39] VITALS: BP 106/75; PULSE 102; RESP 17; TEMP 97.5; O2SAT 98
[2024-08-26] MEDS: PALIPERIDONE PALMITATE 234 MG/1.5 ML SYRINGE IM SCH (08:41)
[2024-08-26] MEDS: TUBERCULIN, PURIFIED PROTEIN DERIVATIVE 5 TU/0.1 ML SYRINGE ID ONE (13:25)
[2024-08-26 20:31] VITALS: BP 113/77; PULSE 101; RESP 18; TEMP 97.4; O2SAT 98
[2024-08-27 09:10] VITALS: BP 125/71; PULSE 113; RESP 16; TEMP 97.3; O2SAT 99
[2024-08-27 20:59] VITALS: BP 115/82; PULSE 115; RESP 15; TEMP 97.5; O2SAT 98
[2024-08-28 11:09] VITALS: BP 110/72; PULSE 102; RESP 17; TEMP 97.3; O2SAT 98
[2024-08-28 16:40] VITALS: BP 117/77; PULSE 98; RESP 16; O2SAT 98
[2024-08-28 20:40] VITALS: BP 111/67; PULSE 74; RESP 16; TEMP 98; O2SAT 98
[2024-08-29 09:04] VITALS: BP 135/92; RESP 17; TEMP 98; O2SAT 98
[2024-08-29 16:39] VITALS: BP 142/89; PULSE 96; RESP 18; TEMP 98.2
[2024-08-29 20:07] VITALS: BP 114/72; PULSE 100; RESP 18; TEMP 97.5; O2SAT 96
[2024-08-30 08:13] VITALS: BP 133/89; PULSE 69; RESP 16; TEMP 98.2; O2SAT 99
[2024-08-30 20:08] VITALS: BP 145/89; PULSE 103; RESP 18; TEMP 97.5; O2SAT 98
[2024-08-31 08:39] VITALS: BP 111/61; PULSE 93; RESP 18; TEMP 97.5; O2SAT 97
[2024-08-31 16:30] VITALS: BP 136/84; PULSE 96; RESP 18; TEMP 97.8
[2024-08-31 20:10] VITALS: BP 119/65; PULSE 100; RESP 16; TEMP 97.8; O2SAT 97
[2024-08-31] MEDS: ZOLPIDEM TARTRATE 10 MG TABLET PO PRN (21:02)
[2024-09-01 08:06] VITALS: BP 109/63; PULSE 64; RESP 17; TEMP 97.4; O2SAT 99
[2024-09-01 20:52] VITALS: BP 117/68; PULSE 68; RESP 18; TEMP 97.6; O2SAT 98
[2024-09-02 08:40] VITALS: BP 107/54; PULSE 92; RESP 17; TEMP 96.2; O2SAT 99
[2024-09-02 15:50] VITALS: BP 114/63; PULSE 103; O2SAT 99
[2024-09-02 20:00] VITALS: BP 141/84; PULSE 86; RESP 18; TEMP 97.8; O2SAT 99
[2024-09-03 08:12] VITALS: BP 147/67; PULSE 97; RESP 17; TEMP 97.5; O2SAT 98
[2024-09-03 20:25] VITALS: BP 115/82; PULSE 68; RESP 17; TEMP 98; O2SAT 99
[2024-09-04 08:10] VITALS: BP 126/72; PULSE 98; RESP 17; TEMP 97.3; O2SAT 100
[2024-09-04] MEDS: NICOTINE POLACRILEX 2 MG LOZENGE PO PRN (18:19)
[2024-09-04 20:16] VITALS: BP 116/72; PULSE 89; RESP 18; TEMP 97.8; O2SAT 99
[2024-09-05 08:41] VITALS: BP 107/60; PULSE 100; RESP 17; TEMP 97.3; O2SAT 98
[2024-09-05 16:27] VITALS: BP 128/79; PULSE 93; RESP 17; TEMP 97.6
[2024-09-05 20:21] VITALS: BP 119/92; PULSE 94; RESP 17; TEMP 98.6; O2SAT 99
[2024-09-06 08:04] VITALS: BP 112/64; PULSE 89; RESP 16; TEMP 97.8; O2SAT 99
[2024-09-06 20:41] VITALS: BP 138/79; PULSE 80; RESP 17; TEMP 97.9; O2SAT 98
[2024-09-07 08:27] VITALS: BP 136/81; PULSE 100; RESP 18; TEMP 97.7; O2SAT 99
[2024-09-07] MEDS ORDERED: CHLO50TA61 PO (08:46)
[2024-09-07] MEDS ORDERED: DIVA-112 PO (08:47)
[2024-09-07] MEDS ORDERED: CARV3.1231 PO (08:49)
== END 2024-09-07 10:15 | disposition home or self-care (01) | DRG 750 ==
LOC: EMS 12:28 → B3A 08-22 10:37
PROVIDERS: ADMIT Psychiatry & Neurology Child & Adolescent Psychiatry; ATTEND Psychiatry & Neurology Child & Adolescent Psychiatry
PROC: GZHZZZZ Group Psychotherapy (ICD-10-PCS; principal; 2024-08-23)
PROC: GZ56ZZZ Individual Psychotherapy, Supportive (ICD-10-PCS; 2024-08-23)
DX: F25.0 Schizoaffective disorder, bipolar type (principal); R45.850 Homicidal ideations; F12.10 Cannabis abuse, uncomplicated; Z20.822 Contact with and (suspected) exposure to COVID-19; F41.9 Anxiety disorder, unspecified; G47.00 Insomnia, unspecified; F15.10 Other stimulant abuse, uncomplicated; Z87.891 Personal history of nicotine dependence
CPT/HCPCS: 80048; 80061; 80307; 81003; 83036; 85025; G0480